=== PATIENT | female | born 2000 | race Caucasian/White ===

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

== ENCOUNTER 2022-01-24 04:40 | Inpatient (IN) | payer BC, OTHER ==
[2022-01-24] MEDS ORDERED: LIDOCAINE 0.5% (PF) 5 MG/ML (50 ML SDV) SQ PRN (05:02)
[2022-01-24] MEDS ORDERED: OXYTOCIN 10 UNIT/ML 1 ML VIAL IM PRN (05:02)
[2022-01-24] MEDS ORDERED: TERBUTALINE 1 MG/ML VIAL SQ PRN (05:02)
[2022-01-24] MEDS ORDERED: METHYLERGONOVINE 0.2 MG/ML 1 ML AMP IM PRN (05:02)
[2022-01-24] MEDS ORDERED: CARBOPROST TROMETHAMINE 250 MCG/ML 1 ML AMP IM PRN (05:02)
[2022-01-24] MEDS ORDERED: OXYTOCIN 30 UNITS/500 ML NS 30 UNIT in SALINE 1 500ML.BAG IV SCH ×2 (05:15→12:15)
[2022-01-24] MEDS: LACTATED RINGERS 1,000 ML IV SCH ×2 (05:20→07:23)
[2022-01-24 05:22] LABS: Basophils % (A) 0 %; Eosinophils # (A) 0.1 k/uL (0-0.7); Eosinophils % (A) 1 %; HCT 32.2 % (34.0-46.0); HGB 10.5 gm/dL (11.4-16.0); Hypochromasia Slight; Lymphocytes # (A) 1.8 k/uL (1.0-4.8); Lymphocytes % (A) 15 %; MCH 27.3 pg (25.0-35.0); MCHC 32.7 g/dL (31.0-37.0); MCV 83.6 fL (80.0-100.0); Mean Platelet Volume 8.9; Monocytes # (A) 0.6 k/uL (0-1.0); Monocytes % (A) 5 %; Neutrophils # (A) 9.1 k/uL (1.3-7.7); Neutrophils % (A) 77 %; Platelet Count 276 k/uL (150-450); RBC 3.85 m/uL (3.80-5.40); RDW 15.8 % (11.5-15.5); WBC 11.8 k/uL (4.0-11.0)
[2022-01-24] MEDS ORDERED: ROPIVACAINE 5 MG/ML 20 ML AMPULE ONE (07:42)
[2022-01-24] MEDS ORDERED: fentaNYL (PF) 50 MCG/ML 5 ML AMP ONE (07:42)
[2022-01-24] MEDS ORDERED: SODIUM CHLORIDE 0.9% 100 ML BAG ONE (07:42)
[2022-01-24] MEDS ORDERED: diphenhydrAMINE 50 MG CAP PO PRN (12:07)
[2022-01-24] MEDS ORDERED: LANOLIN CREAM 5 GM TUBE TOPICAL PRN (12:07)
[2022-01-24] MEDS ORDERED: BENZOCAINE/MENTHOL SPRAY 1 GM/SPRAY AEROSOL TOPICAL PRN (12:07)
[2022-01-24] MEDS ORDERED: diphenhydrAMINE 25 MG CAP PO PRN (12:07)
[2022-01-24] MEDS ORDERED: SIMETHICONE 80 MG CHEWABLE PO PRN (12:07)
[2022-01-24] MEDS ORDERED: MEASLES-MUMPS-RUBELLA VACC/PF 12,500 UNIT/0.5 ML VIAL SQ ONE (12:07)
[2022-01-24] MEDS ORDERED: ZOLPIDEM 5 MG TAB PO PRN (12:07)
[2022-01-24] MEDS ORDERED: HYDROCORTISONE 2.5% RECTAL CREAM 30 GM TUBE RECTAL PRN (12:07)
[2022-01-24] MEDS: IBUPROFEN 600 MG TAB PO PRN (16:08)
[2022-01-24 18:10] LABS: Basophils % (A) 0 %; Eosinophils # (A) 0.1 k/uL (0-0.7); Eosinophils % (A) 0 %; HCT 27.8 % (34.0-46.0); HGB 9.2 gm/dL (11.4-16.0); Hypochromasia Slight; Lymphocytes # (A) 1.8 k/uL (1.0-4.8); Lymphocytes % (A) 13 %; MCH 27.7 pg (25.0-35.0); MCHC 33.1 g/dL (31.0-37.0); MCV 83.5 fL (80.0-100.0); Mean Platelet Volume 9.1; Monocytes # (A) 1.2 k/uL (0-1.0); Monocytes % (A) 8 %; Neutrophils # (A) 10.8 k/uL (1.3-7.7); Neutrophils % (A) 77 %; Platelet Count 237 k/uL (150-450); RBC 3.33 m/uL (3.80-5.40); RDW 15.8 % (11.5-15.5); WBC 14.1 k/uL (4.0-11.0)
[2022-01-24 18:16] LABS: ALT 15 U/L (4-34); AST 20 U/L (14-36); African American GFR (CKD) >90 (>60 ml/min/1.73 sqM); Blood Urea Nitrogen 8 mg/dL (7-17); LDH 416 U/L (313-618); Non-African American GFR(CKD) >90 (>60 ml/min/1.73 sqM); Uric Acid 4.5 mg/dL (3.7-7.4)
[2022-01-24 18:36] LABS: Appearance,Urine Clear (Clear); Bilirubin,Urine Negative (Negative); Blood,Urine Small (Negative); Color,Urine Yellow; Glucose,Urine (UA) Negative (Negative); Ketones,Urine 1+ (Negative); Leukocyte Esterase,Urine Negative (Negative); Mucus,Urine Few /hpf; Nitrite,Urine Negative (Negative); Protein,Urine Trace (Negative); RBC,Urine 3 /hpf (0-5); Specific Gravity,Urine 1.019 (1.001-1.035); Squamous Epithelial Cell,Urine 1 /hpf (0-4); Urobilinogen,Urine <2.0 mg/dL (<2.0); WBC,Urine 3 /hpf (0-5)
[2022-01-24 19:05] LABS: Creatinine,Urine Random 142.8 mg/dL
[2022-01-24 19:18] LABS: Creatinine,Urine Random 140.8 mg/dL; Total Protein,Urine Random <5 mg/dL (<12)
[2022-01-24] MEDS: ACETAMINOPHEN TAB 325 MG TAB PO PRN (20:04)
[2022-01-24] MEDS: SENNOSIDES-DOCUSATE SODIUM 1 EACH TAB PO SCH (21:07)
--- NOTE | 2022-01-25 00:23 | P.HPOB ---
History of Present Illness H&P Date: 01/24/22 Chief Complaint: Normal labor 21-year-old presented at 40 weeks and 5 days and labor. Her cervix was 3 cm dilated, 90% effaced, and -2 station. She is danielle every 2-4 minutes. heart tones 135 with moderate variability and reactive. Review of Systems All systems: negative Constitutional: Denies chills, Denies fever Eyes: denies blurred vision, denies pain Ears, nose, mouth and throat: Denies headache, Denies sore throat Cardiovascular: Denies chest pain, Denies shortness of breath Respiratory: Denies cough Gastrointestinal: Denies abdominal pain, Denies diarrhea, Denies nausea, Denies vomiting Genitourinary: Denies dysuria, Denies hematuria Musculoskeletal: Denies myalgias Integumentary: Denies pruritus, Denies rash Neurological: Denies numbness, Denies weakness Psychiatric: Denies anxiety, Denies depression Endocrine: Denies fatigue, Denies weight change Past Medical History Past Medical History: No Reported History History of Any Multi-Drug Resistant Organisms: None Reported Past Surgical History: No Surgical Hx Reported Past Anesthesia/Blood Transfusion Reactions: No Reported Reaction Past Psychological History: No Psychological Hx Reported Smoking Status: Vaper Past Alcohol Use History: None Reported Past Drug Use History: None Reported, Marijuana - Past Family History Mother Family Medical History: No Reported History Medications and Allergies Home Medications Medication Instructions Recorded Confirmed Type No Known Home Medications 05/18/17 01/24/22 History Allergies Allergy/AdvReac Type Severity Reaction Status Date / Time No Known Allergies Allergy Verified 05/18/17 13:27 Exam Osteopathic Statement: *. No significant issues noted on an osteopathic structural exam other than those noted in the History and Physical/Consult. Vital Signs Temp Pulse Resp BP Pulse Ox 01/24/22 23:40 98.1 F 94 16 122/84 01/24/22 19:22 98.5 F 84 16 108/70 01/24/22 16:00 98.3 F 64 40 H 150/82 01/24/22 13:00 96.6 F L 106 H 16 148/70 01/24/22 12:30 104 H 16 151/80 01/24/22 12:00 96 16 148/85 01/24/22 11:45 104 H 16 146/73 01/24/22 11:30 87 16 146/65 01/24/22 11:15 91 16 183/82 01/24/22 11:00 97.7 F 111 H 16 166/58 01/24/22 05:01 97.0 F L 99 1 L 143/93 99 Intake and Output 01/24/22 01/24/22 01/25/22 14:59 22:59 06:59 Intake Total 1500 Output Total 150 Balance 1500 -150 Intake: IV 1500 Output: Output, Quantitative 150 Blood Loss Other: # Voids 1 1 Heart: Regular rate and rhythm Lungs: Clear to auscultation bilaterally Abdomen: Soft, nontender Extremities: Negative Homans sign Results Result Diagrams: 01/24/22 17:43 01/24/22 17:43 Abnormal Lab Results - Last 24 Hours (Table) 01/24/22 01/24/22 01/24/22 Range/Units 05:05 17:43 17:45 WBC 11.8 H 14.1 H (4.0-11.0) k/uL RBC 3.33 L (3.80-5.40) m/uL Hgb 10.5 L 9.2 L (11.4-16.0) gm/dL Hct 32.2 L 27.8 L (34.0-46.0) % RDW 15.8 H 15.8 H (11.5-15.5) % Neutrophils # 9.1 H 10.8 H (1.3-7.7) k/uL Monocytes # 1.2 H (0-1.0) k/uL Urine Protein Trace H (Negative) Urine Ketones 1+ H (Negative) Urine Blood Small H (Negative) Urine Mucus Few H (None) /hpf Assessment and Plan (1) Normal labor Current Visit: Yes Status: Acute Code(s): O80 - ENCOUNTER FOR FULL-TERM UNCOMPLICATED DELIVERY; Z37.9 - OUTCOME OF DELIVERY, UNSPECIFIED SNOMED Code(s): 90902380 Plan: 1. Admit to family place 2. Expectant management 3. Anticipate normal vaginal delivery
--- NOTE | 2022-01-25 00:24 | P.PROBDLV ---
Vaginal Delivery Note - . Vaginal Delivery Note: 21-year-old presented at 40 weeks and 5 days and labor. Her cervix was 3 cm dilated, 90% effaced, and -2 station. She is danielle every 2-4 minutes. heart tones 135 with moderate variability and reactive. Amniotomy proved was performed at 6:42 AM clear fluid noted. She then got an epidural and was completely dilated by 10:17 AM. She pushed, delivered a viable male infant over intact perineum under epidural anesthesia at 10:48 AM. Head delivered OA, nuchal cord 1 easily reduced, anterior shoulder delivered gentle downward guidance for by posterior shoulder and rest of body. Nose and mouth bulb suctioned, cord clamped and cut, infant placed mother's abdomen. Apgars 9, 9, weight 7 lbs. 6 oz. Assented delivered spontaneously, intact with three-vessel cord at 10:50 AM. Vagina, cervix, perineum inspected. Second-degree midline laceration was repaired with 3-0 Vicryl. Estimated blood loss 150 mL. Mother and baby in stable condition.
[2022-01-25] MEDS: IBUPROFEN 600 MG TAB PO PRN ×3 (03:59→21:15)
[2022-01-25 07:41] LABS: Anisocytosis Slight; Basophils % (A) 0 %; Eosinophils # (A) 0.1 k/uL (0-0.7); Eosinophils % (A) 1 %; HCT 27.3 % (34.0-46.0); Hypochromasia Slight; Lymphocytes # (A) 2.5 k/uL (1.0-4.8); Lymphocytes % (A) 19 %; Monocytes # (A) 0.8 k/uL (0-1.0); Monocytes % (A) 7 %; Neutrophils % (A) 71 %; Platelet Count 218 k/uL (150-450); RBC 3.21 m/uL (3.80-5.40); WBC 12.7 k/uL (4.0-11.0)
[2022-01-25] MEDS: ACETAMINOPHEN TAB 325 MG TAB PO PRN ×2 (08:04→15:45)
[2022-01-25] MEDS: SENNOSIDES-DOCUSATE SODIUM 1 EACH TAB PO SCH ×2 (08:05→20:41)
--- NOTE | 2022-01-25 08:07 | P.PNOBGVD ---
Subjective - Subjective Principal diagnosis: Status post normal vaginal delivery day #1 Interval history: Patient seen and examined. Denies nausea, vomiting, chest pain, shortness of breath or any calf pain she also denies headache or vision changes. Patient has had some increased blood pressures but most recently they have been normal. I did run eclamptic labs last night which were all within normal limits. I did review signs and symptoms of preeclampsia with the patient's without in the hospital and when she goes home she can look for the signs and symptoms and give me a phone call. Patient reports: Reports appetite normal, Reports voiding normally, Reports pain well controlled, Reports ambulating normally : doing well Objective - Latest Vital Signs Latest vital signs: Vital Signs Temp Pulse Resp BP Pulse Ox 01/25/22 04:00 98.3 F 83 16 130/68 98 01/24/22 23:40 98.1 F 94 16 122/84 01/24/22 19:22 98.5 F 84 16 108/70 01/24/22 16:00 98.3 F 64 40 H 150/82 01/24/22 13:00 96.6 F L 106 H 16 148/70 01/24/22 12:30 104 H 16 151/80 01/24/22 12:00 96 16 148/85 01/24/22 11:45 104 H 16 146/73 01/24/22 11:30 87 16 146/65 01/24/22 11:15 91 16 183/82 01/24/22 11:00 97.7 F 111 H 16 166/58 Intake and Output 01/24/22 01/25/22 01/25/22 22:59 06:59 14:59 Output Total 150 Balance -150 Output: Output, Quantitative 150 Blood Loss Other: # Voids 1 1 - Exam Lungs: bilateral: normal Chest: Normal S1, Normal S2 Extremities: Present: normal Abdomen: Present: normal appearance, soft Uterus: Present: normal, firm - Labs Labs: Abnormal Lab Results - Last 24 Hours (Table) 01/24/22 01/24/22 01/25/22 Range/Units 17:43 17:45 07:05 WBC 14.1 H 12.7 H (4.0-11.0) k/uL RBC 3.33 L 3.21 L (3.80-5.40) m/uL Hgb 9.2 L 9.0 L (11.4-16.0) gm/dL Hct 27.8 L 27.3 L (34.0-46.0) % RDW 15.8 H 16.0 H (11.5-15.5) % Neutrophils # 10.8 H 9.0 H (1.3-7.7) k/uL Monocytes # 1.2 H (0-1.0) k/uL Urine Protein Trace H (Negative) Urine Ketones 1+ H (Negative) Urine Blood Small H (Negative) Urine Mucus Few H (None) /hpf Assessment and Plan (1) Normal labor Current Visit: Yes Status: Resolved Code(s): O80 - ENCOUNTER FOR FULL-TERM UNCOMPLICATED DELIVERY; Z37.9 - OUTCOME OF DELIVERY, UNSPECIFIED SNOMED Code(s): 49509816 (2) Status post normal vaginal delivery Current Visit: Yes Status: Acute Code(s): MJD3675 - SNOMED Code(s): 063742063 Plan: 1. Continue care 2. Babies in the nursery for not holding temperatures. Since baby is staying mom is going to stay another day which is a good opportunity for us to continue to watch her blood pressures to determine if she needs medication.
[2022-01-26] MEDS: IBUPROFEN 600 MG TAB PO PRN ×2 (04:39→14:44)
[2022-01-26] MEDS: ACETAMINOPHEN TAB 325 MG TAB PO PRN (10:01)
[2022-01-26] MEDS: SENNOSIDES-DOCUSATE SODIUM 1 EACH TAB PO SCH (10:01)
[2022-01-26 11:02] VITALS: RESP 16
--- NOTE | 2022-01-26 12:41 | P.DS ---
Providers Date of admission: 01/24/22 04:40 Expected date of discharge: 01/26/22 Attending physician: Yany Wu Primary care physician: Stated None Hospital Course: This is a 21-year-old female 1 para 0 at 40-5/7 weeks who presented in active labor. Please see history and physical and delivery note for details of patient's admission. She is currently day #2 and feeling well. She is pumping her breast milk. Lochia is decreasing. Her pain is well-controlled with ibuprofen. Vital signs are stable. Abdomen is soft with fundus firm and nontender. Extremities show negative Homans. Impression is status post vaginal delivery post remaining #2. Plan is to discharge home today. Routine instructions are given. She will be given a prescription for ibuprofen. She is advised to follow up with Dr. Wu in the office in 6 weeks. She is advised to call the office if she has any further questions or concerns prior to her appointment time. Procedures: Spontaneous vaginal delivery of a viable male on 01/24/2022 Patient Condition at Discharge: Stable Plan - Discharge Summary New Discharge Prescriptions: New Ibuprofen [Motrin] 600 mg PO Q6HR PRN #60 tab PRN Reason: Mild Pain (Scale 1 To 3) Discharge Medication List Ibuprofen [Motrin] 600 mg PO Q6HR PRN #60 tab 01/26/22 [Rx] Follow up Appointment(s)/Referral(s): Yany Wu DO [Doctor of Osteopathic Medicine] - 03/08/22 11:15 am Activity/Diet/Wound Care/Special Instructions: Instructions 1. Do not begin any exercise program for 3 weeks. 2. Do not resume sexual relations for 3 weeks or longer if uncomfortable. 3. You may take tub baths or showers at any time. 4. You may use tampons if desired after 3 weeks. 5. Keep the area of episiotomy (stitches) clean and dry. 6. If you are not nursing, wear a good fitting, supportive bra during the day and limit fluid intake for at least 1 week to prevent breast engorgement. 7. Call the office, [phone], within the next week to make appointment for your 6 week checkup if it has not already been made. 8. Report any of the following occurrences to the doctor promptly: a. Heavy, excessive bleeding b. Chills, fever c. Burning or frequency of urination d. Pain or redness and breasts if nursing e. Increasing pain or swelling in episiotomy (stitches). In addition to the above instructions, the following additional should be followed: 1. No heavy lifting or straining (exercising) until after 6 week checkup. 2. Keep abdominal incision clean and dry: You may wear a dressing if more comfortable. 3. Make office appointment for 10 days after going home or as instructed by her doctor. Discharge Disposition: HOME SELF-CARE
[2022-01-26 16:10] VITALS: BP 134/80; PULSE 80; TEMP 97.8
== END 2022-01-26 18:08 | disposition home or self-care (01) | DRG 807 ==
LOC: 4FBP 04:40
PROVIDERS: ADMIT Obstetrics & Gynecology; ATTEND Obstetrics & Gynecology
PROC: 10E0XZZ Delivery of Products of Conception, External Approach (ICD-10-PCS; principal; 2022-01-24)
PROC: 0KQM0ZZ Repair Perineum Muscle, Open Approach (ICD-10-PCS; 2022-01-24)
PROC: 10907ZC Drainage of Amniotic Fluid, Therapeutic from Products of Conception, Via Natural or Artificial Opening (ICD-10-PCS; 2022-01-24)
PROC: 4A0HXCZ Measurement of Products of Conception, Cardiac Rate, External Approach (ICD-10-PCS; 2022-01-24)
DX: O69.81X0 Labor and delivery complicated by cord around neck, without compression, not applicable or unspecified (principal); Z37.0 Single live birth; O70.1 Second degree perineal laceration during delivery; O48.0 Post-term pregnancy; O99.334 Smoking (tobacco) complicating childbirth; F17.290 Nicotine dependence, other tobacco product, uncomplicated; Z3A.40 40 weeks gestation of pregnancy
CPT/HCPCS: 81001; 82565; 82570; 83615; 84156; 84450; 84460; 84520; 84550; 85025; 86850; 86900; 86901; 90471; 90707